=== PATIENT | female | born 1975 | race Caucasian/White ===

== ENCOUNTER 2017-01-30 09:14 | Inpatient (IN) | payer MEDICAID ==
[2017-01-30] VITALS (21 sets, daily range): BP systolic 111–141; BP diastolic 64–90; PULSE 61–96; RESP 12–19; Ht 160 cm; Wt 67.5 kg
[~2017-01-30] VITALS: Ht 160 cm; Wt 67.5 kg
[~2017-01-30 09:14] MED LIST: PROPOFOL 200 MG INJ ONE
[2017-01-30] MEDS ORDERED: SOD CHLORIDE 0.9% 1,000 ML IV SCH (09:30)
[2017-01-30] MEDS ORDERED: CEFAZOLIN 2 GM/50 ML (PMX) 50 ML IVPB ONE (09:30)
[2017-01-30] MEDS ORDERED: ISOSULFAN BLUE 1% 5 ML INJ SC ONE (10:57)
[2017-01-30] MEDS ORDERED: PROPOFOL 60 ML ONE (11:12)
[2017-01-30] MEDS ORDERED: LIDOCAINE 2% (SDV) 5 ML INJ ONE (11:12)
[2017-01-30] MEDS ORDERED: FENTAnyl 50 MCG/ML VIAL ONE ×2 (11:13→11:53)
[2017-01-30] MEDS ORDERED: CEFAZOLIN 1 GM INJ ONE (11:22)
[2017-01-30] MEDS ORDERED: DEXAMETHASONE 4 MG/ML 1 ML INJ ONE (11:24)
[2017-01-30] MEDS ORDERED: ACETAMINOPHEN 1000MG/100ML IV 100 ML IVPB PRN (12:30)
[2017-01-30] MEDS ORDERED: ONDANSETRON 4 MG INJ IV PRN ×2 (12:30→13:00)
[2017-01-30] MEDS: FENTAnyl 50 MCG/ML VIAL IV PRN ×3 (12:59→13:15)
[2017-01-30] MEDS ORDERED: hydrALAzine 20 MG INJ IV PRN (13:00)
[2017-01-30] MEDS ORDERED: MEPERIDINE 25 MG INJ IV PRN (13:00)
[2017-01-30] MEDS ORDERED: LABETALOL HCL 20MG INJ IV PRN (13:00)
[2017-01-30] MEDS ORDERED: OXYCODONE/ACETAMINOPHEN (5/325) TAB PO PRN ×2 (13:00)
[2017-01-30] MEDS ORDERED: FENTAnyl 50 MCG/ML VIAL IV PRN ×2 (13:00)
[2017-01-30] MEDS ORDERED: EPHEDrine SULFATE 50 MG/5 ML SYG IV PRN (13:00)
[2017-01-30] MEDS: D5W-0.45 NACL + KCL 20 MEQ 1,000 ML IV SCH ×2 (13:21→21:22)
[2017-01-30] MEDS: morphine 2 MG INJ IV PRN ×2 (15:11→21:26)
[2017-01-31 02:00] VITALS: BP 99/59; RESP 17
[2017-01-31] MEDS: D5W-0.45 NACL + KCL 20 MEQ 1,000 ML IV SCH ×2 (06:22→12:41)
--- NOTE | 2017-01-31 17:28 | PN ---
Date/Time of Note Date/Time of Note DATE: 01/31/17 TIME: 17:19 Assessment/Plan VTE Prophylaxis VTE Prophylaxis Intervention: ambulation Lines/Catheters IV Catheter Type (from Nrs): Peripheral IV Urinary Cath still in place: No Assessment/Plan Chief Complaint/Hosp Course This is [age] years old female recall Chandra who underwent left partial mastectomy with axillary dissection yesterday Thursday. Patient has been doing fine postop stable vital signs. Tolerated diet has been ambulating walking around. With my Nurse Taught the Patient to Care Of the Lawrence-Franco Drain Because Patient Is Going to Go Home with Lawrence-Franco Drain. Patient Was Advised to Call Dr. Stearns Office on Thursday and Make an Appointment for Follow- Up. Also Patient Was Instructed How to Measure the Lawrence-Franco Drain Secretion and How to Recorded Daily and Take the Patient to Dr. Norman's Office When She Goes There for Follow-Up. From a Surgical Point of View Patient Is Discharged and Mr. Chris Camposr Ashutosh Practitioner for Primary Care Dr. Milan She Is Going to Give Prescription for Pain. Problems: Subjective 24 Hr Interval Summary Free Text/Dictation January 31, [address] Brush dictating progress note follow-up on patient Chi, first name last name Chandra patient is status post left partial mastectomy with axillary dissection utilizing sentinel lymph node technique Subjective patient does not have any complain she had few questions that was lasted properly by me on by the nurse Exam/Review of Systems Vital Signs Vitals Vital Signs Date Time Temp Pulse Resp B/P Pulse Ox O2 Delivery O2 Flow Rate FiO2 01/31/17 02:00 97.6 67 17 99/59 98 01/30/17 16:00 Room Air Intake and Output 01/30/17 01/30/17 01/31/17 15:00 23:00 07:00 Intake Total 800 ml 1300 ml 1420 ml Output Total 50 ml 50 ml Balance 750 ml 1300 ml 1370 ml Exam Objective vital sign is stable. No fever. Lawrence-Franco drain has drained 60 cc of serosanguineous fluid overnight. Today from 7 AM to now which is 3 PM yesterday and 25 cc. Serosanguineous color. Dressing is intact it was checked it is not very tight. Results Results 24 hrs Laboratory Tests Test 01/31/17 05:55 Lab Scanned Report LAB Medications Medications Current Medications Ondansetron HCl 4 mg 4 mg Q6H PRN IV NAUSEA AND/OR VOMITING Last administered on 01/30/17 12:54; Admin Dose 4 MG; Start 01/30/17 at 12:30 Potassium Chloride/Dextrose/ Sod Cl (D5-1/2ns + KCl 20 Meq) 1,000 ml @ 125 mls/ hr Q8H IV Last administered on 01/31/17 12:41; Admin Dose 125 MLS/HR; Start at 12:30 Morphine Sulfate 2 mg 2 mg Q1H PRN IV PAIN Last administered on 01/30/17 21:26 ; Admin Dose 2 MG; Start 01/30/17 at 12:30 Acetaminophen (Ofirmev 1000mg/ 100ml Iv) 100 ml @ 400 mls/hr Q6H PRN IVPB PAIN ; Start 01/30/17 at 12:30 FRANCESCA BRUSH MD Jan 31, 2017 17:28
[2017-01-31 18:44] VITALS: BP 113/64
--- NOTE | 2017-01-31 18:52 | PDOCDIS ---
Discharge Instructions CONDITION Patient Condition: Stable HOME CARE INSTRUCTIONS: Special Diet: Regular diet ACTIVITY: Activity Restrictions: Slowly Increase Activity Rest between Activity Avoid heavy lifting Do not operate Machinery Do not operate Power Tool Avoid Heavy Housework VINCE ELY Jan 31, 2017 18:52
--- NOTE | 2017-01-31 18:57 | DS ---
Date/Time of Note Date/Time of Note DATE: 01/31/17 TIME: 18:57 Discharge Summary Admission/Discharge Info Admit Date/Time Jan 30, 2017 at 12:21 Discharge Date/Time Hospital Course This is [age] years old female shashi Artis who underwent left partial mastectomy with axillary dissection yesterday Thursday. Patient has been doing fine postop stable vital signs. Tolerated diet has been ambulating walking around. With my Nurse Taught the Patient to Care Of the Lawrence-Franco Drain Because Patient Is Going to Go Home with Lawrence-Franco Drain. Patient Was Advised to Call Dr. Stearns Office on Thursday and Make an Appointment for Follow- Up. Also Patient Was Instructed How to Measure the Lawrence-Franco Drain Secretion and How to Recorded Daily and Take the Patient to Dr. Norman's Office When She Goes There for Follow-Up. From a Surgical Point of View Patient Is Discharged and Mr. Perez Bethr Ashutosh Practitioner for Primary Care Dr. Milan She Is Going to Give Prescription for Pain. Home Meds No Active Prescriptions or Reported Meds Primary Care Provider Not On Staff Doctor Pending Labs Laboratory Tests Test 01/31/17 05:55 Lab Scanned Report [id number] VINCE ELY Jan 31, 2017 18:57
--- NOTE | 2017-02-02 15:24 | HP ---
DATE OF ADMISSION: 01/30/2017 CHIEF COMPLAINT: . HISTORY OF PRESENT ILLNESS: The patient is a 41-year-old female with history of invasive cancer of the left breast. The patient's tumor was noted to be HER-2 negative. The patient was brought into the hospital on the day of admission and underwent left partial mastectomy and axillary dissection. The patient had significant chest wall pain, therefore, patient was admitted for further evaluation and management. The patient denied history of nausea or vomiting. No history of abdominal pain. No history of headache or syncope. No history of fevers or chills. No history of dysuria or hematuria. No history of leg edema. Rest of review of systems unremarkable. PAST SURGICAL HISTORY: None. ALLERGIES: NONE. SOCIAL HISTORY: No smoking or alcohol. FAMILY HISTORY: The patient's sister has history of renal cancer. Details not available. MEDICATIONS: Prior to admission, none. PHYSICAL EXAMINATION: GENERAL APPEARANCE: The patient is conscious, awake, alert. VITAL SIGNS: Temperature 97.6, pulse 67, respirations 17, blood pressure 99/59, O2 sat 98 percent on room air. HEENT: Extraocular movements normal. Oropharynx clear. NECK: Supple. No thyromegaly. LUNGS: Clear to auscultation. HEART: S1, S2. No murmur. ABDOMEN: Soft, nontender and nondistended. No palpable mass. EXTREMITIES: No leg edema. NEUROLOGIC: The patient is awake, alert, fully oriented with no focal deficits. DATA: Urine test negative. IMPRESSION: Left breast cancer status post left partial mastectomy and axillary dissection. PLAN: The patient will be admitted to the medical floor. The patient will be started on a clear liquid diet which will be advanced as tolerated. The patient will be continued on Tylenol, Percocet and IV morphine for pain control. The patient will begin IV fluid and will also continue DVT prophylaxis using SCDs. DISPOSITION: The patient will be discharged home once cleared by surgery. Dictated By: Franky Spivey MD /manuel/ec /Document#: [id number]
--- NOTE | 2017-02-05 10:42 | OPR ---
DATE OF OPERATION: 01/30/2017 PREOPERATIVE DIAGNOSIS: Locally advanced left breast cancer. POSTOPERATIVE DIAGNOSIS: Locally advanced left breast cancer. OPERATION PERFORMED: Left partial mastectomy and axillary dissection utilizing sentinel lymph node technique. ANESTHESIA: General. ANESTHESIOLOGIST: Dr. Richter. SURGEON: Dr. Clarke. STRATEGIC PARTNERSHIP SPECIALIST: Dr. Foreman INDICATIONS FOR PROCEDURE: Patient is an unfortunate 41-year-old female, who presented with an enlarging mass in her left breast. Workup including biopsy revealed moderately differentiated cancer. Unfortunately, she was HER2-negative, and therefore, not a candidate for neoadjuvant chemotherapy. She was counseled as the need for immediate surgery. She requested breast conservation therapy with left partial mastectomy and axillary dissection utilizing sentinel lymph node technique. She consented and was scheduled for surgery. OPERATIVE PROCEDURE: The patient was brought to the operating theater, placed under general endotracheal tube anesthesia. The left breast and axillary region was prepped and draped in usual sterile fashion. Approximately 4 cc of 1 percent Lymphazurin blue were then injected tumorally and the breast was gently massaged for 12 minutes. At this point, a 4 cm incision was made in the left axillary hairline. Subcutaneous tissue was dissected with cautery down through the clavipectoral fascia. The clavipectoral fascia was incised and within the actual axilla, a dye-stained lymphatics was identified. It was traced to a lymph node that appeared to have metastatic disease. There were several other nodes that appeared to have gross metastatic disease. Therefore, Dr. Clarke made the decision to proceed with axillary dissection. With blunt dissection along the chest wall, the long thoracic nerve was identified and kept out of harm's way. More superiorly, the axillary vein and thoracodorsal neurovascular bundle were identified and dissected throughout their course and kept out harm's way. Posteriorly the latissimus dorsi muscle was identified and dissected throughout its course. The sentinel node and additional level 1 and level 2 lymph nodes were then harvested using the LigaSure device. Final connective tissue attachments to the latissimus dorsi muscle were transected with cautery. Specimen was sent for intraoperative frozen section analysis performed by [facility]aze, which confirmed metastatic disease in at least 3 lymph nodes. The whole specimen was then sent for permanent pathologic analysis. Dr. Clarke palpated the axilla. There were no additional abnormal- appearing lymph nodes. The wound was irrigated. Minimal bleeding was controlled with cautery. A number 10-Hebrew Lawrence- Franco drain was then brought through the left mid axillary line, cut to size and laid within the axilla. It was secured in place with a 2-0 nylon suture in the standard fashion. The skin was then reapproximated with a 4-0 Vicryl suture in subcuticular fashion. Attention was then directed to performing the partial mastectomy. The mass, which was between the 12 and 1 o'clock location, at least 3 cm in diameter, was palpable. A long curvilinear incision was then made directly over the mass. Subcutaneous tissue was dissected with cautery. The skin edges were elevated with skin hooks and wide circumferential dissection of the tissue associated mass took place taking great care should be sure adequate margin. Specimen was elevated, transected oriented and sent for permanent pathologic analysis. The wound was irrigated. Minimal bleeding was controlled with cautery. The skin was then reapproximated with a deep dermal layer 4-0 Vicryl suture in interrupted fashion, followed by final skin approximation with 5-0 PDS suture in subcuticular fashion. Dermabond and Steri-Strips were then applied to both incisions. The patient tolerated the procedure well. ESTIMATED BLOOD LOSS: 40 cc. COMPLICATIONS: There were no complications. The patient was transported in stable condition to the recovery room where a circumferential compression dressing was applied. Dictated By: Paul Clarke MD /manuel/paul /Document#: [id number]
== END 2017-01-31 19:55 | disposition home or self-care (01) | DRG 580 ==
LOC: SDS 09:14 → PP2 12:21
PROVIDERS: ADMIT Surgery Surgical Oncology; ATTEND Surgery Surgical Oncology
PROC: 0HBU0ZZ Excision of Left Breast, Open Approach (ICD-10-PCS; 2017-01-30)
PROC: 07B60ZX Excision of Left Axillary Lymphatic, Open Approach, Diagnostic (ICD-10-PCS; principal; 2017-01-30 13:00)
DX: C50.912 Malignant neoplasm of unspecified site of left female breast (principal); C77.3 Secondary and unspecified malignant neoplasm of axilla and upper limb lymph nodes
CPT/HCPCS: 88307; 88331; J0690; J1100; J2175; J2270; J2405; J3010; J3480; Q9968

== ENCOUNTER → 2017-03-20 | Outpatient (CLI) | payer MEDICAID ==
--- NOTE | 2017-03-20 15:42 | RADRPT ---
Echocardiogram Report Patient Name: IAN ATKINSON Gender: Female Date: 1975 Study Date: 20-Mar-2017 Machine Bander And Cellophaner: Alexia [facility] Location: EKG Ref. Physician: ELSI SESAY Quality: Adequate Procedures: Transthoracic echocardiogram with complete 2D, M-Mode, and doppler examination. Indications: Breast CA. 2D/M Mode Doppler Measurement Value Normal Ranges Measurement Value Normal Ranges LVIDd 2D 4.5 3.5 - 5.6 cm AV Peak Elmer 1.2 m/sec LVIDs 2D 2.9 2.1 - 4.1 cm AV Peak PG 6.0 mmHg FS 2D 35.2 % LVOT Peak Elmer 0.9 m/sec LVPWd 2D 1.0 0.6 - 1.1 cm LVOT Peak PG 3.0 mmHg IVSd 2D 0.9 0.6 - 1.1 cm MV E Peak Elmer 1.1 m/sec IVS/LVPW 2D 0.9 MV A Peak Elmer 0.7 m/sec AoR Diam 2D 2.9 2.0 - 3.7 cm MV E/A 1.6 LA/Ao 2D 1 0 - 1 MV Decel Time 222 msec EDV 2D 93.6 cm3 MV E/A 1.6 ESV 2D 25.4 cm3 LA Dimen 2D 3.7 2.3 - 4.0 cm Findings Left Ventricle: Normal left ventricular systolic function. Normal left ventricular cavity size. Normal left ventricular wall thickness. Ejection fraction is visually estimated at 65 %. Tissue Doppler/Mitral Doppler indices are within normal limits. Right Ventricle: Normal right ventricular size. Normal right ventricular systolic function. Left Atrium: The left atrium is normal in size. Right Atrium: The right atrium is normal in size. Mitral Valve: Normal appearance and function of the mitral valve with trace physiologic regurgitation. Aortic Valve: Normal appearance of the aortic valve. No significant aortic stenosis or insufficiency. Tricuspid Valve: Normal appearance and function of the tricuspid valve with trace physiologic regurgitation. Pulmonic Valve: Pulmonic valve not well visualized. There is trace pulmonic regurgitation. Pericardium: Normal pericardium with no significant pericardial effusion. Aorta: Normal aortic root. IVC: Normal size and normal respiratory collapse consistent with normal right atrial pressure. Conclusions 1.Normal left ventricular systolic function. Normal left ventricular cavity size. Normal left ventricular wall thickness. Ejection fraction is visually estimated at 65 %. Tissue Doppler/Mitral Doppler indices are within normal limits. 2.Normal right ventricular size. Normal right ventricular systolic function. 3.The left atrium is normal in size. 4.The right atrium is normal in size. 5.No significant valvular stenosis or regurgitation seen. 6.Normal pericardium with no significant pericardial effusion. Electronically Signed By: Jason Pollock 20-Mar-2017 15:41:41 -0700 Patient Name: IAN ATKINSON Study Date: 20-Mar-2017 [id number]
== END | disposition home or self-care (01) ==
LOC: EKG 13:58
PROVIDERS: ATTEND Internal Medicine Hematology & Oncology
DX: C50.919 Malignant neoplasm of unspecified site of unspecified female breast (principal)
CPT/HCPCS: 93306

== ENCOUNTER 2017-04-06 07:30 | Day surgery (SDC) | payer MEDICAID ==
[2017-04-06] VITALS (15 sets, daily range): BP systolic 101–127; BP diastolic 62–75; PULSE 56–68; RESP 14–20; Ht 157.5 cm; Wt 67.0 kg
[~2017-04-06] VITALS: Ht 157.5 cm; Wt 67.0 kg
[2017-04-06] MEDS ORDERED: CEFAZOLIN 1 GM/50 ML (PMX) 50 ML IVPB ONE ×2 (08:00→09:36)
[2017-04-06] MEDS ORDERED: POLYMYXIN/BACITRACIN 1L IRRIG IRR ONE (08:00)
[2017-04-06] MEDS ORDERED: SOD CHLORIDE 0.9% 1,000 ML IV SCH (08:00)
[2017-04-06] MEDS ORDERED: SOD CHLORIDE 0.9% 500 ML ONE (08:30)
[2017-04-06] MEDS ORDERED: LIDOCAINE 2%/EPI 30 ML INJ ONE (08:30)
[2017-04-06] MEDS ORDERED: HEPARIN 1000 UNITS/ML 10 ML INJ ONE (08:30)
[2017-04-06] MEDS ORDERED: MIDAZOLAM 1 MG/ML 2 ML INJ ONE (09:36)
[2017-04-06] MEDS ORDERED: FENTAnyl 50 MCG/ML VIAL ONE (09:36)
--- NOTE | 2017-04-06 11:07 | RADRPT ---
PROCEDURE: Ultrasound guidance for placement of needle in right internal jugular vein. CLINICAL INDICATION: Venous access. TECHNIQUE: Prior to the procedure, informed consent was obtained. Risks including bleeding, infection, and pneu mothorax were explained to the patient. The patient understood and was willing to proceed. A procedu ral pause was performed. The patient's name, date of , and procedure to be performed were verif ied. The central line was inserted with all elements of maximal sterile barrier technique. All of th e following were used: head covering, facial mask, sterile gown, sterile gloves, a large sterile she et, hand hygiene, and 2% chlorhexidine for cutaneous antisepsis. The right neck and anterior/super ior chest wall was prepped and draped in usual sterile fashion. Limited sonography of the right neck was then performed. Noted is a patent right internal jugular ve in. Ultrasound images were recorded and stored in the patient's medical record. Following the local injection of Xylocaine, the right internal jugular vein was punctured under sono graphic guidance with a 20-gauge needle through which a 0.018 inch floppy tip guidewire was advanced into the superior vena cava. The patient tolerated the procedure well. The remainder of the proce dure was performed and dictated under separate cover. COMPARISON: None. FINDINGS: The ultrasound images demonstrate a patent right internal jugular vein. The subsequent images demon strate the needle entering the right internal jugular vein. IMPRESSION: 1. Ultrasound guidance for a needle placement in right internal jugular vein. RPTAT: QQ .Lakhwinder Koenig MD, Date Time Electronically viewed and signed by .Lakhwinder Koenig MD, on 04/06/2017 11:07 .R/
--- NOTE | 2017-04-06 11:07 | RADRPT ---
PROCEDURE: FLUOROSCOPIC AND ULTRASONOGRAPHIC-GUIDED PLACEMENT OF RIGHT CHEST PORT. CLINICAL INDICATION: History of left breast cancer. Venous access for chemotherapy. TECHNIQUE: INTRAPROCEDURE MEDICATIONS: PB antibiotic solution 40 cc applied topically. 1 gram Ancef intravenous ly, intra-op. IV Versed and Fentanyl per protocol. Informed consent was obtained. The procedure, risks, benefits, complications and alternatives were explained to the patient. Risks including bleeding, infection, and pneumothorax were explained. The patient understood and was willing to proceed. A procedural pause was performed. The patient's name , date of , and procedure to be performed were verified. The central line was inserted with al l elements of maximal sterile barrier technique. All of the following were used: head covering, faci al mask, sterile gown, sterile gloves, a large sterile sheet, hand hygiene, and 2% chlorhexidine fo r cutaneous antisepsis. The right neck and anterior/superior chest wall were prepped and draped in usual sterile fashion. Limited sonography of the right neck was then performed. Noted is a patent right internal jugular ve in. Following the local injection of 1% lidocaine, the right internal jugular vein was punctured under s onographic guidance with a 20-gauge needle through which a 0.018 inch floppy tip guidewire was advan venice into the superior vena cava with fluoroscopic guidance. The tract was dilated to 5 Algerian and the wire was then replaced with a 0.035 in Amplatz guidewire. Serial dilatation was then performed and a 7 Algerian peel away sheath was introduced. A site just inferior to the clavicle in the superior anterior right chest wall was localized. One pe rcent lidocaine was used as local anesthesia. A transverse 2.5 cm incision was made utilizing a 15 b lade scalpel. Utilizing blunt dissection a subcutaneous pocket was created inferior to the incision. The cavity was flushed with approximately 40 cc of PB antibiotic solution. The catheter was tunneled underneath the skin from the newly created pocket to the puncture site in the neck. The central line catheter was pulled through the tract. The catheter was then advanced thr ough the sheath until the tip was positioned in the right atrium. The peel-away sheath was removed. The catheter was flushed and clamped. The 6.6 Algerian catheter was then connected to the Angiodynamics power port. The port was then placed into the pocket. Prior to closing the instrument and sponge count was verified and was correct. The subcutaneous tissue was closed with 3-0 Vicryl interrupted suture. The skin at the site of the pock et and in the neck was closed with 4-0 Vicryl suture in a running subcuticular technique. The port w as flushed with 1500 units of heparin in 1.5 cc utilizing a Harmon needle. The needle was removed. A dressing was applied. The patient tolerated procedure well. COMPARISON: None. FINDINGS: Ultrasound images were recorded and stored in the patient's medical record. Final radiographic images demonstrate the tip of the catheter in the upper right atrium. A total of 0.1 minutes of fluoroscopy time was used. 6 images of the chest were obtained with the [employer]. The ultrasound images demonstrate the needle entering the internal jugular vein. IMPRESSION: 1. Successful ultrasonographic and fluoroscopic guided placement of right chest power port. RPTAT: QQ .Lakhwinder Koenig MD, Date Time Electronically viewed and signed by .Lakhwinder Koenig MD, on 04/06/2017 11:07 .R/
[2017-04-06] MEDS ORDERED: HYDROCODONE/APAP (5/325) TAB PO PRN (11:30)
== END 2017-04-06 13:12 | disposition home or self-care (01) ==
LOC: SDS 07:30
PROVIDERS: ATTEND Internal Medicine Hematology & Oncology
DX: C50.912 Malignant neoplasm of unspecified site of left female breast (principal)
CPT/HCPCS: 36561; 76942; C1788; J0690; J1644; J2250; J3010; J7040; Z7610